=== PATIENT | male | born 1990 | race Caucasian/White ===

== ENCOUNTER 2020-03-04 21:24 | Emergency (ER) | payer OTHER, SELFPAY ==
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
--- NOTE | ~2020-03-04 | CT_ITS ---
EXAMINATION: CT brain wo con INDICATION: Head injury COMPARISON: 08/05/2006 TECHNIQUE: Standard unenhanced head CT. The dose-length product (DLP) was 605.33 mGy-cm. The mA was a djusted according to patient size. Iterative reconstruction technique was employed. FINDINGS: There is no intracranial hemorrhage, acute infarction, or abnormal mass lesion. The ventric les are normal. There is no abnormal mass effect or midline shift. The mota-white matter differentiat ion is normal. The basal cisterns are patent. The orbits are normal. There is moderate opacification of the paranasal sinuses. 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 IMPRESSION: 1. No acute intracranial abnormality. 2. Moderate opacification of the paranasal sinuses. Reviewed, dictated and finalized at location A. CAL CLERK
--- NOTE | ~2020-03-04 | XR_ITS ---
EXAMINATION: XR chest 1V INDICATION: Chest pain, shortness of breath TECHNIQUE: PA view of the chest is obtained. COMPARISON: None available FINDINGS: The lungs are free of acute opacities. There is no pleural effusion or pneumothorax. The ca rdiomediastinal silhouette is normal. IMPRESSION: 1. No acute cardiopulmonary abnormality. Reviewed, dictated and finalized at location A. OON SANDER
[2020-03-04 21:32] VITALS: BP 147/98; PULSE 93; RESP 16; TEMP 37.2; O2SAT 96
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
--- NOTE | 2020-03-04 21:51 | PC.NURSE ---
Patient being taken to CT.
[2020-03-04] MEDS: TETANUS,DIPHTHERIA,AC PERTUSSIS ADULT (0.5 ML) BOOSTRIX IM (22:03)
[2020-03-04 22:38] LABS: Basophils Absolute Auto 0.1 K/mm3 (0.0-0.1); Basophils Percent Auto 0.5 % (0.2-1.2); Eosinophils Absolute Auto 0.5 K/mm3 (0-0.3); Eosinophils Percent Auto 3.6 % (0-4.4); Hematocrit 43.9 % (42.0-52.0); Hemoglobin 15.4 g/dL (14.0-18.0); Immature Granulocyte Absolute 0.04 K/mm3 (0.00-0.031); Immature Granulocyte Percent A 0.3 % (0-0.5); Lymphocytes Absolute Auto 2.08 K/mm3 (0.9-3.2); Lymphocytes Percent Auto 16.1 % (18.3-44.2); Mean Corpuscular HGB Conc 35.1 g/dl (32-36); Mean Corpuscular Volume 85.4 fl (80-100); Mean Platelet Volume 10.7 fl (7.4-10.4); Monocytes Absolute Auto 1.1 K/mm3 (0.1-0.6); Monocytes Percent Auto 8.6 % (2.6-8.5); Neutrophils Absolute Auto 9.2 K/mm3 (1.3-6.7); Neutrophils Percent Auto 70.9 % (45.5-73.1); Platelet Count Result 309 k/mm3 (150-375); Red Blood Count 5.14 M/mm3 (4.6-6.20); Red Cell Distribution Width 12.2 % (11.5-14.5); White Blood Count 12.9 K/mm3 (4.5-10.0)
[2020-03-04 22:50] LABS: Alanine Aminotransferase 57 U/L (4-50); Albumin Level 4.7 g/dL (3.5-5.1); Alkaline Phosphatase 102 U/L (38-126); Anion Gap 11 mmol/L (8-16); Aspartate Amino Transferase 37 U/L (17-59); Bilirubin,Total 0.7 mg/dL (0.2-1.3); Blood Urea Nitrogen 15 mg/dL (9-20); Calcium 9.8 mg/dL (8.4-10.2); Carbon Dioxide 27 mmol/L (22-30); Chloride 100 mmol/L (98-107); Estimated CRCL calculation 126 ml/min; Estimated Glomerular Filt Rate > 60; Glucose 106 mg/dL (75-110); Potassium 3.8 mmol/L (3.4-5.0); Sodium 138 mmol/L (137-145)
[2020-03-04 23:15] VITALS: BP 142/82; PULSE 83; RESP 19; TEMP 37.2; O2SAT 98
[2020-03-05 16:54] LABS: SARS-CoV-2 RNA PCR Negative
== END 2020-03-04 23:40 | disposition home or self-care (01) ==
PROVIDERS: Emergency Provider Emergency Medicine
DX: S00.12XA Contusion of left eyelid and periocular area, initial encounter (principal); S00.81XA Abrasion of other part of head, initial encounter; Z23 Encounter for immunization; Z20.828 Contact with and (suspected) exposure to other viral communicable diseases; W20.8XXA Other cause of strike by thrown, projected or falling object, initial encounter
CPT/HCPCS: 36415; 70450; 70486; 71045; 80053; 85025; 87635; 90471; 90715; 99284; C9803; U0003

== ENCOUNTER 2022-02-11 12:49 | Emergency (ER) | payer OTHER, SELFPAY ==
[2022-02-11 12:59] VITALS: BP 147/84; PULSE 118; RESP 20; TEMP 38.6; O2SAT 96
--- NOTE | 2022-02-11 13:10 | ED.URI ---
HPI - URI/Sore Throat General Chief Complaint: Upper Respiratory Infection Stated Complaint: Cough,Congestion Time Seen by Provider: 02/11/22 13:04 Source: patient Mode of arrival: ambulatory Limitations: no limitations History of Present Illness HPI Narrative: patient presents today complaining of fever up to 102, cough, sneezing, rhinorrhea, body aches. Symptoms began yesterday. He has been taking Tylenol and ibuprofen without relief. History of asthma. He has not received a flu vaccine this season Related Data Home Medications Medication Instructions Recorded Confirmed escitalopram oxalate 20 mg tablet 20 mg PO DAILY 03/04/20 02/11/22 Allergies Allergy/AdvReac Type Severity Reaction Status Date / Time No Known Allergies Allergy Mild Verified 02/11/22 13:04 Review of Systems Review of Systems: CONSTITUTIONAL: Denies chills, or sweats.+ fever, body aches EYES: Denies visual changes, redness, or discharge. ENT: Denies sore throat, or otalgia.+ congestion, rhinorrhea, sneezing CARDIOVASCULAR: Denies chest pain, palpitations, or edema. RESPIRATORY: Denies dyspnea.+ cough GASTROINTESTINAL: Denies abdominal pain, nausea, vomiting, or diarrhea. GENITOURINARY: Denies dysuria or hematuria. SKIN: Denies rash, itching, or wounds. MUSCULOSKELETAL: Denies back pain, joint pain, or myalgia. NEUROLOGIC: Denies headache, numbness, tingling, or weakness. PSYCH: Denies depression or anxiety. [facility] Past Medical History Medical History (Updated 02/11/22 @ 13:16 by Esther Seymour, [facility], ) Asthma Social History Social History Smoking status: Never smoker Alcohol intake: never Comments At time of signature, I have reviewed and agree with nursing past medical, surgical, social and family history unless otherwise noted. Please see nursing chart for further information. There is no relevant family history pertinent to the presenting complaint Exam Narrative: GENERAL: ill-appearing, well-nourished, and in no acute distress. HEAD: Normocephalic, atraumatic. EYES: EOMI. No redness or drainage. Conjunctivae normal. ENT: Mucous membranes pink and moist. Nares congested with rhinorrhea. bilateral cerumen impactions. Throat normal. Uvula midline. NECK: Normal AROM. Supple. No lymphadenopathy. CHEST: No respiratory distress. Clear to auscultation. HEART: Regular rhythm. + Tachycardia.No murmur appreciated. Normal peripheral pulses. EXTREMITIES: Normal range of motion. No edema. SKIN: Warm, dry, no rash. Capillary refill normal. Normal skin turgor. NEURO: No focal deficits. Alert and oriented x3. Gait steady. PSYCH: Normal affect. No signs of depression or anxiety. Course Course Level of Care: Express Care Visit Vital Signs Vital signs: Vital Signs Temperature 101.5 F H 02/11/22 12:59 Pulse Rate 118 H 02/11/22 12:59 Respiratory Rate 20 02/11/22 12:59 Blood Pressure 147/84 H 02/11/22 12:59 Pulse Oximetry 96 02/11/22 12:59 Oxygen Delivery Room Air 02/11/22 12:59 Temperature 101.5 F H 02/11/22 12:59 Pulse Rate 118 H 02/11/22 12:59 Respiratory Rate 20 02/11/22 12:59 Blood Pressure 147/84 H 02/11/22 12:59 Pulse Oximetry 96 02/11/22 12:59 Oxygen Delivery Room Air 02/11/22 12:59 Reviewed. Pt has been instructed to follow up with his PCP regarding his elevated blood pressure today. MDM - URI/Sore Throat Differential Diagnosis Differential diagnosis: Likely upper respiratory infection and viral infection Lab Data Attestation: I reviewed the patient's lab results. Labs: Influenza A Screen Positive Reference Range: Negative Influenza A Screen Positive Reference Range: Negative Influenza B Screen Negative Reference Range: Ne
== END 2022-02-11 13:18 | disposition home or self-care (01) ==
PROVIDERS: Emergency Provider Nurse Practitioner
DX: J10.1 Influenza due to other identified influenza virus with other respiratory manifestations (principal)
CPT/HCPCS: 87804; 99213; G0463

== ENCOUNTER 2022-08-11 14:17 | Emergency (ER) | payer OTHER, SELFPAY ==
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
[2022-08-11 14:33] VITALS: BP 144/87; PULSE 83; RESP 16; TEMP 36.3; O2SAT 97
[2022-08-11] MEDS: SILVER SULFADIAZINE 1% CR 50 GM JAR (*BKC) 1 APPLIC TOPICAL (14:44)
[2022-08-11] MEDS: KETOROLAC (*BKC) 60 MG/2 ML VIAL IM (14:44)
== END 2022-08-11 15:13 | disposition home or self-care (01) ==
PROVIDERS: Emergency Provider Nurse Practitioner Family
DX: T24.221A Burn of second degree of right knee, initial encounter (principal); T24.122A Burn of first degree of left knee, initial encounter; T31.0 Burns involving less than 10% of body surface; X08.8XXA Exposure to other specified smoke, fire and flames, initial encounter; J45.909 Unspecified asthma, uncomplicated
CPT/HCPCS: 16020; 96372; 99213; A9270; G0463; J1885

== ENCOUNTER 2024-09-06 16:24 | Emergency (ER) | payer OTHER, SELFPAY ==
[2024-09-06 16:34] VITALS: BP 149/97; PULSE 69; RESP 18; TEMP 36.2; O2SAT 98
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
== END 2024-09-06 16:55 | disposition home or self-care (01) ==
PROVIDERS: PCP Family Medicine
DX: L55.1 Sunburn of second degree (principal); J45.909 Unspecified asthma, uncomplicated
CPT/HCPCS: 99213; G0463